=== PATIENT | male | born 1985 | race Caucasian/White ===

== ENCOUNTER 2019-11-03 23:50 | Emergency (ER) | payer OTHER, SELFPAY ==
[2019-11-03 23:54] VITALS: BP 128/71; PULSE 63; RESP 14; TEMP 37; O2SAT 100; BMI 23.7
--- NOTE | 2019-11-04 00:05 | DI.RAD.S_ITS ---
PROCEDURE: XR FOOT RT MIN 3V INDICATIONS: hit ankle while rockclimbing now with pain TECHNIQUE: 3 views of the foot were acquired. COMPARISON: [facility], CR, XR ANKLE RT MIN 3V, 11/04/2019, 0:12. FINDINGS: Bones: No fractures or dislocations. No suspicious bony lesions. Soft tissues: No tibiotalar joint effusion. Achilles tendon appears normal. IMPRESSION: No fracture or dislocation. Dictated by: Singh Castellano M.D. on 11/04/2019 at 9:10 Approved by: Singh Castellano M.D. on 11/04/2019 at 9:11
--- NOTE | 2019-11-04 00:06 | DI.RAD.S_ITS ---
PROCEDURE: XR ANKLE RT MIN 3V INDICATIONS: hit ankle during rockclimbing now with pain TECHNIQUE: 3 views of the ankle were acquired. COMPARISON: None. FINDINGS: Bones: No fractures or dislocations. Subtle lucency in the medial aspect of the talar dome. Ankle mortise is normally aligned. No suspicious bony lesions. Soft tissues: No tibiotalar joint effusion. Achilles tendon appears normal. IMPRESSION: 1. Subtle lucency in the mid aspect of the talar dome, which could represent osteochondral injury of uncertain chronicity. If clinical symptoms persist or clinical suspicion for pathology is high, MRI is suggested for further evaluation. Dictated by: Singh Castellano M.D. on 11/04/2019 at 9:11 Approved by: Singh Castellano M.D. on 11/04/2019 at 9:13
[2019-11-04] MEDS: OXYCODONE/ACETAMINOPHEN 5/325 TABLET 1 TAB PO (00:39)
[2019-11-04] MEDS: KETOROLAC 60 MG/2 ML VIAL 30 MG IM (00:39)
--- NOTE | 2019-11-04 01:51 | ED_ITS ---
HPI - Extremity Injury (Lower) General Chief Complaint: Extremity Injury, Lower Stated Complaint: right ankle pain Time Seen by Provider: 11/04/19 00:28 History of Present Illness HPI Narrative: 34-year-old otherwise healthy gentleman presents with acute right ankle pain. Describes it as throbbing stabbing and some of the worst pain he has ever experienced. He was rock climbing earlier today hit head and twisted his ankle on the bottom of the mouth but despite initial pain was able to hike back to his car and drive home. Once he got home he realized that the ankle was so tender he could not bear weight. He drove himself to the emergency room using his left foot only. He has not taken any Tylenol or ibuprofen. He has never had similar injuries. He describes the majority of the pain on the lateral edge of the foot and lateral malleolus. There is no other injuries reported Related Data Previous Rx's Medication Instructions Recorded hydroxyzine HCl 25 mg PO QID PRN #20 tab 11/04/19 oxycodone-acetaminophen [Percocet] 1 tab PO Q6H PRN #10 tab 11/04/19 Allergies Allergy/AdvReac Type Severity Reaction Status Date / Time No Known Drug Allergies Allergy Verified 11/04/19 00:02 Review of Systems Review of Systems Narrative: Denies ? fever ? cough ? cold ? chills ? chest pain ? dyspnea ? orthopnea ? wheezing ? abdominal pain ? change to bowel or bladder habits ? nausea vomiting ? skin changes ? rashes Patient History Social History Smoking Status: Never smoker Smoking Status: Never smoker alcohol intake frequency: 0-2 drinks per day Substance Use Type: does not use Exam Narrative Exam Narrative: General: Alert appropriate in no acute distress Respiratory: Able to speak in full sentences, no obvious respiratory distress Skin: No obvious rashes, warm and dry Neurologic: Grossly intact no obvious asymmetries or abnormalities Psych, appropriate insight and affect, cooperative Right ankle: Mild swelling around both malleoli and the dorsum of the foot more laterally than medially. No specific point tenderness but significant superficial pain to the entire area. No erythema. No warmth. Full dorsalis pedis and posterior tibialis pulses. Good capillary refill Initial Vital Signs Initial Vital Signs: Vital Signs Temperature 98.6 F 11/03/19 23:54 Pulse Rate 63 11/03/19 23:54 Respiratory Rate 14 11/03/19 23:54 Blood Pressure 128/71 11/03/19 23:54 Pulse Oximetry 100 11/03/19 23:54 Course Orders Ordered: ED Orders 11/04/19 00:05 XR foot RT min 3V Stat 11/04/19 00:06 XR ankle RT min 3V Stat Discontinued Medications Hydroxyzine Pamoate (Vistaril) 50 mg PO NOW ONE Stop: 11/04/19 01:52 Last Admin: 11/04/19 01:56 Dose: 50 mg Documented by: AI Hydroxyzine Pamoate (Vistaril) 25 mg PO NOW ONE Stop: 11/04/19 02:03 Last Admin: 11/04/19 02:15 Dose: Not Given Documented by: AI Ketorolac Tromethamine (Toradol) 30 mg IM NOW ONE Stop: 11/04/19 00:36 Last Admin: 11/04/19 00:39 Dose: 30 mg Documented by: AI Oxycodone/Acetaminophen (Percocet 5/325) 1 tab PO NOW ONE Stop: 11/04/19 00:36 Last Admin: 11/04/19 00:39 Dose: 1 tab Documented by: ALEXANDERL Oxycodone/Acetaminophen (Endocet 5/325 Prepack) 1 bottle MISC SEEINSTR ONE Stop: 11/04/19 01:53 Last Admin: 11/04/19 01:58 Dose: 1 bottle Documented by: ALEXANDERL Oxycodone/Acetaminophen (Endocet 5/325 Prepack) 1 bottle MISC SEEINSTR ONE Stop: 11/04/19 02:01 Last Admin: 11/04/19 02:15 Dose: Not Given Documented by: AI Vital Signs Vital signs: Vital Signs - 8 hr 11/03/19 23:54 11/04/19 02:08 Temperature 98.6 F Pulse Rate 63 65 Respiratory Rate 14 16 Blood Pressure 128/71 Blood Pressure [Right Arm] 107/77 Pulse Oximetry 100 99 MDM - Extremity Injury (Lower) Imaging Data X-rays of the right foot and ankle: Attestation: I personally reviewed and interpreted this imaging study as follows: My Impression: No evidence of acute fractures or obvious displacement to suggest severe ligamentous injury. MDM Narrative Medical decision making narrative: Pain seems significantly out of proportion to injury and presentation. His calf is tender with no evidence of tension consistent with compartment syndrome nor is his injury consistent with a compartment syndrome pair presentation he does have good pulses as well as good capillary refill. Foot is placed in a splint pain is treated with Toradol Percocet and for muscle spasm his given hydroxyzine. Have asked him to follow- up with outpatient orthopedics. He is given a set of crutches to use he is safe for home discharge at this time Discharge Plan Departure Patient Disposition: Home Clinical Impression: Ankle injury Qualifiers: Encounter type: initial encounter Laterality: right Qualified Code(s): S99.911A - Unspecified injury of right ankle, initial encounter Discharge Date/Time: 11/04/19 02:15 Instructions: DI for Ankle Pain Activity Restrictions/Additional Instructions: Thank you for coming in today Your x-rays do not show any obvious fractures tonight. Sometimes less obvious fractures will be evident as the fracture line begins to heal. You clearly have significantly injured your ankle but the exact etiology is not clear to night. Immobilizing the ankle with the air splint will help. Keeping it elevated, using ice and crutches will also help. For moderate pain using 400 mg of ibuprofen (2 [id number] ibuprofen) and 1 Tylenol will be helpful. For severe pain use 400 mg of ibuprofen and 1 Percocet. Please remember that Percocet is a narcotic and will cause constipation. He should not drive or operate heavy machinery including fighter jets. You may find that hydroxyzine is helpful for the severe spasm that you are having. It can make you sleepy so he should not drive with this either. Dr. Caba is our orthopedist on-call this evening. I will give you her office phone number. Please schedule an appointment with herof her partners within the next week for a further evaluation of your ankle as it is beginning to heal in the swelling is going down. I hope you heal quickly Prescriptions: New hydroxyzine HCl 25 mg tablet 25 mg PO QID PRN (Reason: muscle spasm) Qty: 20 RF: 0 oxycodone-acetaminophen [Percocet] 5-325 mg tablet 1 tab PO Q6H PRN (Reason: pain) Qty: 10 RF: 0 Referrals: Melody Caba MD [Physician] - (Right ankle injury, follow-up within a week)
[2019-11-04] MEDS: hydrOXYzine pamoate 25 MG CAPSULE 50 MG PO (01:56)
[2019-11-04] MEDS: OXYCODONE/APAP 5/325 PREPACK 1 BOTTLE MISC (01:58)
[2019-11-04 02:08] VITALS: BP 107/77; PULSE 65; RESP 16; O2SAT 99
== END 2019-11-04 02:15 | disposition home or self-care (01) ==
PROVIDERS: Emergency Provider Emergency Medicine
DX: S99.911A Unspecified injury of right ankle, initial encounter (principal); Y93.31 Activity, mountain climbing, rock climbing and wall climbing
CPT/HCPCS: 73610; 73630; 96372; 99283; 99284; J1885